=== PATIENT | male | born 2000 | race Caucasian/White ===

== ENCOUNTER 2020-11-20 13:17 | Emergency (ER) | payer BC ==
[~2020-11-20] VITALS: Ht 172.7 cm; Wt 119.2 kg
[~2020-11-20 13:17] MED LIST: LIDOcaine 1% W/epiNEPHrine 1:100,000 20ml vial ONE
[2020-11-20] MEDS ORDERED: CefTRIAXone 2gm/D5W 50ml BAG 50 ML IV ONE (13:30)
[2020-11-20] MEDS ORDERED: iohexol 350MG/ML 100ml bottle IV ONE (13:39)
[2020-11-20] MEDS ORDERED: dexamethasone sod phosphate 10mg/ml inj IV STA (14:30)
[2020-11-20 14:42] LABS: BASOPHILS # (AUTO) 0.1 X10'3 (0-0.2); BASOPHILS % (AUTO) 0.4 % (0-1); EOSINOPHILS # (AUTO) 0.1 X10'3 (0-0.9); EOSINOPHILS % (AUTO) 0.7 % (0-6); HEMOGLOBIN 17.5 g/dl (14.0-17.9); LYMPHOCYTES # (AUTO) 1.6 X10'3 (1.1-4.8); LYMPHOCYTES % (AUTO) 13.7 % (21-51); MEAN CORPUSCULAR HEMOGLOBIN 28.9 PG (27.0-31.0); MEAN CORPUSCULAR HGB CONC 33.7 g/dL (33.0-36.5); MEAN CORPUSCULAR VOLUME 85.8 FL (78-98); MEAN PLATELET VOLUME 8.4 FL (7.4-10.4); MONOCYTES # (AUTO) 0.9 X10'3 (0-0.9); MONOCYTES % (AUTO) 7.5 % (2-12); NEUTROPHILS % (AUTO) 77.7 % (42-75); PLATELET COUNT 237 X10'3 (140-440); RED BLOOD COUNT 6.06 X10'6 (4.70-6.10); RED CELL DISTRIBUTION WIDTH 12.7 % (11.5-14.5); WHITE BLOOD COUNT 11.6 X10'3 (4.5-11.0)
[2020-11-20 14:52] LABS: ALANINE AMINOTRANSFERASE 39 U/L (12-78); ALBUMIN 4.1 G/DL (3.4-5.0); ALKALINE PHOSPHATASE 103 IU/L (20-180); ANION GAP 8 (8-16); ASPARTATE AMINO TRANSFERASE 14 U/L (10-37); BLOOD UREA NITROGEN 12 MG/DL (7-18); BUN/CREATININE RATIO 11.3 (5.4-32.0); CALCIUM 9.5 MG/DL (8.5-10.1); CHLORIDE 105 MMOL/L (99-107); CREATININE 1.06 MG/DL (0.60-1.10); GLUCOSE 107 MG/DL (70-104); POTASSIUM 3.8 MMOL/L (3.5-5.1); SODIUM 142 MMOL/L (135-145); TOTAL CARBON DIOXIDE 29.2 MMOL/L (24-32); TOTAL PROTEIN 8.4 G/DL (6.4-8.2); eGFR 89 ML/MIN
[2020-11-20] MEDS ORDERED: ketorolac trometh. 30mg/ml inj. IV ONE (15:05)
[2020-11-20 15:25] LABS: CLARITY,URINE CLEAR (Clear); COLOR,URINE YELLOW (Yellow); GLUCOSE, URINE NEGATIVE (Neg); KETONES,URINE NEGATIVE (Neg); LEUKOCYTE ESTERASE ,URINE NEGATIVE (Neg); NITRITES, URINE NEGATIVE (Neg); OCCULT BLOOD,URINE NEGATIVE (Neg); PROTEIN,URINE NEGATIVE (Neg); UROBILINOGEN,URINE 0.2 E.U/dL (0.2-1.0)
[2020-11-20 15:26] LABS: UA COLLECTION TYPE CLN CATCH MIDSTREAM
[2020-11-20] MEDS ORDERED: IBUP-1984 PO (15:42)
[2020-11-20] MEDS ORDERED: ACET-2615 PO (15:42)
[2020-11-20] MEDS ORDERED: AMOX-422 PO (15:42)
[2020-11-20] MEDS ORDERED: normal saline 1000ml 1,000 ML IV ONE (16:50)
[2020-11-20] MEDS ORDERED: clindamycin 600mg/D5W 50ml 50 ML IV ONE (17:45)
[2020-11-20 19:26] VITALS: BP 164/106
== END 2020-11-20 19:28 | disposition home or self-care (01) ==
LOC: ER 13:18
DX: J36 Peritonsillar abscess (principal); Z79.2 Long term (current) use of antibiotics; Z79.899 Other long term (current) drug therapy
CPT/HCPCS: 36415; 42700; 70491; 71045; 80053; 81003; 83605; 84145; 85025; 87040; 87077; 87081; 87880; 96361; 96365; 96367; 96375; 99285; J0696; J1100; J1885; J7030; Q9967; J3490

== ENCOUNTER 2022-04-05 22:27 | Emergency (ER) | payer BC, MEDICAID ==
[~2022-04-05] VITALS: Ht 175.3 cm; Wt 122.7 kg
[2022-04-05 22:29] VITALS: BP 177/98
[2022-04-05] MEDS ORDERED: dexamethasone sod phosphate 10mg/ml inj PO STA (23:17)
== END 2022-04-05 23:28 | disposition home or self-care (01) ==
LOC: ER 22:27
DX: B34.9 Viral infection, unspecified (principal); J02.9 Acute pharyngitis, unspecified; R50.9 Fever, unspecified
CPT/HCPCS: 87081; 87880; 99283; J1100

== ENCOUNTER 2022-04-11 16:56 | Emergency (ER) | payer MEDICAID ==
[~2022-04-11] VITALS: Ht 177.8 cm; Wt 122.7 kg
[2022-04-11 18:42] VITALS: BP 130/82
== END 2022-04-11 18:43 | disposition home or self-care (01) ==
LOC: ER 16:57
DX: R13.11 Dysphagia, oral phase (principal)
CPT/HCPCS: 87081; 87880; 99283

== ENCOUNTER 2022-10-20 15:28 | Emergency (ER) | payer MEDICAID ==
[~2022-10-20] VITALS: Ht 177.8 cm; Wt 110.9 kg
[2022-10-20 16:57] VITALS: BP 122/75
[2022-10-20] MEDS ORDERED: CEPH250T PO (17:39)
[2022-10-20] MEDS ORDERED: DEC4T PO (17:39)
== END 2022-10-20 17:54 | disposition home or self-care (01) ==
LOC: ER 15:28
DX: J03.90 Acute tonsillitis, unspecified (principal); Z79.899 Other long term (current) drug therapy
CPT/HCPCS: 99283

== ENCOUNTER 2024-07-11 12:30 | Emergency (ER) | payer MEDICAID ==
[~2024-07-11] VITALS: Ht 177.8 cm; Wt 109.9 kg
[2024-07-11 12:51] VITALS: TEMP 97.8
[2024-07-11] MEDS ORDERED: AMOX-117 PO (14:19)
[2024-07-11 14:29] VITALS: BP 134/74; PULSE 62; RESP 16; O2SAT 98
== END 2024-07-11 14:31 | disposition home or self-care (01) ==
LOC: ER 12:31
DX: S51.852A Open bite of left forearm, initial encounter (principal); W50.3XXA Accidental bite by another person, initial encounter; Y93.89 Activity, other specified; Y92.89 Other specified places as the place of occurrence of the external cause; Y99.8 Other external cause status
CPT/HCPCS: 99283

== ENCOUNTER 2024-08-13 14:20 | Emergency (ER) | payer MEDICAID ==
[~2024-08-13] VITALS: Ht 177.8 cm; Wt 105.5 kg
[2024-08-13 14:24] VITALS: BP 145/80; PULSE 101; TEMP 97.3; O2SAT 96
[2024-08-13] MEDS ORDERED: LIDO15SO9 PO (16:43)
[2024-08-13] MEDS ORDERED: HYDR-3965 PO (16:43)
[2024-08-13] MEDS ORDERED: PRED10TA PO (16:43)
[2024-08-13] MEDS ORDERED: AMOX-580 PO (16:43)
[2024-08-13 17:01] VITALS: RESP 16
[2024-08-13] MEDS: LIDOcaine 2% Viscous 15ml cup MM PRN (17:01)
[2024-08-13] MEDS: CefTRIAXone 1000mg IM Kit (w/lidocaine diluent) IM ONE (17:01)
[2024-08-13] MEDS: ketorolac trometh 30MG/ML vial 30 MG/ML VIAL IV ONE (17:01)
[2024-08-13] MEDS: methylPREDNISolone sod succ 125mg/2ml vial IV ONE (17:01)
== END 2024-08-13 18:15 | disposition home or self-care (01) ==
LOC: ER 14:21
DX: J03.90 Acute tonsillitis, unspecified (principal)
CPT/HCPCS: 96372; 96374; 96375; 99284; J0696; J1885; J2919